=== PATIENT | female | born 1985 | race Caucasian/White ===

== ENCOUNTER 2023-12-15 03:45 | Emergency (ER) | payer MEDICAID, SELFPAY ==
[2023-12-15 04:04] VITALS: BP 132/74; PULSE 88; RESP 16; TEMP 37.4; O2SAT 100
--- NOTE | 2023-12-15 04:07 | ED.GENADULT ---
HPI - General Adult General Chief complaint: Unspecified Stated complaint: sore throat Time Seen by Provider: 12/15/23 04:02 History of Present Illness HPI narrative: patient is a 38-year-old female who presents emergency department with chief complaint of sore throat. The patient reports for the last 2 days she has been having pain with swallowing reports also had a cough and upper respiratory symptoms. The patient reports she has had a subjective fever at home the patient reports the she is still able to swallow reports no change in her voice. Related Data Allergies Allergy/AdvReac Type Severity Reaction Status Date / Time No Known Allergies Allergy Unknown Verified 12/15/23 04:08 Review of Systems Review of Systems: A 10 system review of systems was completed on the patient and is negative except for what is stated in the HPI. Nursing and ancillary documentation was reviewed. Exam Narrative: GENERAL: Well-appearing, well-nourished, and in no acute distress. HEAD: Normocephalic, atraumatic. EYES: PERRLA and EOMI. ENT: Nares clear, no rhinorrhea or epistaxis. Mucous membranes moist. NECK: Supple. CHEST: Clear to auscultation. No respiratory distress. HEART: Regular rate and rhythm. No murmur heard. Normal peripheral pulses. ABDOMEN: Soft, nontender, nondistended, normal active bowel sounds. EXTREMITIES: Normal range of motion. No edema. SKIN: Warm, dry, no rash. NEURO: No focal deficits. Alert and oriented x3. PSYCH: Normal mood and affect. Course Vital Signs Vital signs: Vital Signs Temperature 37.4 C 12/15/23 04:04 Pulse Rate 88 12/15/23 04:04 Respiratory Rate 16 12/15/23 04:04 Blood Pressure 132/74 12/15/23 04:04 Pulse Oximetry 100 12/15/23 04:04 Oxygen Delivery Room Air 12/15/23 04:04 Temperature 37.4 C 12/15/23 04:04 Pulse Rate 88 12/15/23 04:04 Respiratory Rate 16 12/15/23 04:04 Blood Pressure 132/74 12/15/23 04:04 Pulse Oximetry 100 12/15/23 04:04 Oxygen Delivery Room Air 12/15/23 04:04 Medical Decision Making [facility] Narrative Medical decision making narrative: differential diagnosis includes viral illness, COVID-19, flu, RSV, strep patient was given a dose of prednisone in the emergency department for sore throat COVID test was positive strep is negative flu and RSV are negative Vital Signs Vital Signs: Vital Signs Temperature 37.4 C 12/15/23 04:04 Pulse Rate 88 12/15/23 04:04 Respiratory Rate 16 12/15/23 04:04 Blood Pressure 132/74 12/15/23 04:04 Pulse Oximetry 100 12/15/23 04:04 Oxygen Delivery Room Air 12/15/23 04:04 Temperature 37.4 C 12/15/23 04:04 Pulse Rate 88 12/15/23 04:04 Respiratory Rate 16 12/15/23 04:04 Blood Pressure 132/74 12/15/23 04:04 Pulse Oximetry 100 12/15/23 04:04 Oxygen Delivery Room Air 12/15/23 04:04 Lab Data Labs: Lab Results 12/15/23 Range/Units 04:12 Influenza A (RT-PCR) Negative (Negative) Influenza B (RT-PCR) Negative (Negative) RSV (RT-PCR) Negative (Negative) SARS-CoV-2 RNA (RT-PCR) Positive A (Negative) Group A Strep (PCR) Not detected (Negative) Discharge Plan Discharge Clinical Impression: COVID-19, Acute upper respiratory infection, Pharyngitis Patient Disposition: Home, Self-Care Condition: Stable Instructions: Antibiotic Form, Pharyngitis (ED), Upper Respiratory Infection (ED), Viral Syndrome (ED), COVID-19 (Coronavirus Disease 2019) (ED) Prescriptions: New benzonatate 200 mg capsule 200 mg PO TID PRN (Reason: cough) Qty: 21 0RF prednisone 20 mg tablet 40 mg PO DAILY 5 Days Qty: 10 0RF Follow-up/Referrals: PHYSICIAN,THREAT ANALYST [Non-Staff] - Rico Feng MD [Primary Care Provider] - Time of Disposition: 05:05
[2023-12-15] MEDS: predniSONE 20 MG TABLET 60 MG PO (04:11)
[2023-12-15 04:45] LABS: Strep Group A RT-PCR NOT DETECTED (Negative)
[2023-12-15 04:56] LABS: Influenza A QL RT-PCR Negative (Negative); Influenza B QL RT-PCR Negative (Negative); RSV RNA, RT-PCR Negative (Negative); SARS-CoV-2 RNA PCR Positive (Negative)
[2023-12-15 05:18] VITALS: BP 124/70; PULSE 82; RESP 17; O2SAT 99
== END 2023-12-15 05:19 | disposition home or self-care (01) ==
PROVIDERS: Emergency Provider Emergency Medicine; PCP Emergency Medicine
DX: U07.1 COVID-19 (principal); J06.9 Acute upper respiratory infection, unspecified
CPT/HCPCS: 87637; 87651; 99283; J7512